=== PATIENT | female | born 1985 | race Two or more races ===

== ENCOUNTER 2017-04-01 04:17 | Emergency (ER) | payer OTHER ==
--- NOTE | 2017-04-01 04:27 | ED PDOC ---
Arrival/HPI - General Time Seen by Provider: 04/01/17 04:21 Historian: Patient - History of Present Illness Narrative History of Present Illness (Text): 04/01/17 04:24 Nargis Polanco is a 31 year old female who presents to the emergency department complaining of left ankle pain s/p twisting injury 90 minutes prior to arrival while descending a flight of stairs. Patient is able to ambulate, however states that pain is worsened with weight bearing. Denies any numbness/weakness to extremity. Denies any other complaints. Time/Duration: Other (90 minutes ) Symptom Onset: Sudden Severity Level: Mild Activities at Onset: Light Past Medical History - Provider Review Nursing Documentation Reviewed: Yes Family/Social History - Physician Review Nursing Documentation Reviewed: Yes Family/Social History: No Known Family HX Allergies/Home Meds Allergies/Adverse Reactions: Allergies ibuprofen Allergy (Verified 04/01/17 04:25) SWELLING Review of Systems - Review of Systems Musculoskeletal: Other (left ankle pain ) Physical Exam Vital Signs Reviewed: Yes Vital Signs Temp Pulse Resp BP Pulse Ox 04/01/17 04:32 98.3 F 97 H 18 121/72 98 Temperature: Afebrile Blood Pressure: Normal Pulse: Regular Respiratory Rate: Normal Appearance: Positive for: Well-Appearing, Non-Toxic, Comfortable Pain Distress: None Mental Status: Positive for: Alert and Oriented X 3 - Systems Exam Head: Present: Atraumatic, Normocephalic Conjunctiva: Present: Normal Respiratory/Chest: No: Respiratory Distress, Tachypneic Lower Extremity: Present: Normal Inspection, NORMAL PULSES, Normal ROM, Tenderness (tenderness to palpation at base of 5th metatarsal; no swelling; no malleolar ttp or swelling; normal achilles function), Neurovascularly Intact. No: Edema, CALF TENDERNESS, Cyanosis, Swelling, Erythema, Deformity Neurological: Present: GCS=15, CN II-XII Intact, Speech Normal Psychiatric: Present: Alert, Oriented x 3, Normal Insight, Normal Concentration Medical Decision Making ED Course and Treatment: 04/01/17 04:28 Impression: A 31 year old female who presents to emergency department complaining of ankle pain s/p twisting injury. Differential Diagnosis included but are not limited to: galdamez' fx vs pseudojones ' fx vs sprain Plan: -- Tylenol -- L.foot X-ray -- Reassess and disposition Progress Notes: 04/01/17 05:02 xray with no acute fx seen as read by me. Will place in galdamez dressing with crutches - ok for d/c. - RAD Interpretation Radiology Orders: 04/01/17 04:25 FOOT LEFT 3 VIEWS ROUTINE [RAD] Stat - Medication Orders Current Medication Orders: Discontinued Medications Acetaminophen (Tylenol 325mg Tab) 975 mg PO STAT STA Stop: 04/01/17 04:26 Last Admin: 04/01/17 04:57 Dose: 975 mg MAR Pain/Vitals Document 04/01/17 04:57 RD (Rec: 04/01/17 04:57 RD [id number]) Pain Reassessment Is This A Pain ReAssessment? No Sleep Is patient sleeping during reassessment? No Presence of Pain Presence of Pain Yes - Scribe Statement The provider has reviewed the documentation as recorded by the Scribe Nimco Heck Provider Attestation: Provider Scribe Attestation: All medical record entries made by the Scribe were at my direction and personally dictated by me. I have reviewed the chart and agree that the record accurately reflects my personal performance of the history, physical exam, medical decision making, and the department course for this patient. I have also personally directed, reviewed, and agree with the discharge instructions and disposition. Disposition/Present on Arrival - Present on Arrival Any Indicators Present on Arrival: No - Disposition Have Diagnosis and Disposition been Completed?: Yes Diagnosis: Foot sprain Disposition: HOME/ ROUTINE Disposition Time: 05:05 Patient Plan: Discharge Condition: GOOD Discharge Instructions (ExitCare): Foot Sprain (ED) Additional Instructions: Keep foot wrapped and apply ice over area of pain. Use crutches with ambulation x 2-3 days. Follow up with ortho as needed. Return to the emergency department if any new concerning symptoms. Referrals: Tiffany Smith MD [Staff Provider] - Follow up with primary Forms: WORK NOTE
[2017-04-01 04:33] VITALS: BP 121/72; PULSE 97; RESP 18; TEMP 98.3; O2SAT 98
--- NOTE | 2017-04-01 08:41 | RAD ---
PROCEDURE: Left Foot Radiographs. HISTORY: L foot injury COMPARISON: None. FINDINGS: BONES: Normal. No fracture. JOINTS: Normal. SOFT TISSUES: Normal. OTHER FINDINGS: None. IMPRESSION: Normal left foot radiographs.
== END 2017-04-01 05:04 | disposition home or self-care (01) ==
LOC: ED 04:17
DX: S93.602A Unspecified sprain of left foot, initial encounter (principal); X50.0XXA Overexertion from strenuous movement or load, initial encounter; Y93.89 Activity, other specified; Y92.89 Other specified places as the place of occurrence of the external cause